=== PATIENT | female | born 2000 | race Caucasian/White ===

== ENCOUNTER → 2019-11-25 | Outpatient (CLI) | payer BC ==
[2019-11-25 17:51] LABS: BASO % 0.2 % (0.0-2.0); EOS # 0.1 (0.0-0.7); EOS % 0.9 % (0-4.0); GRAN # 3.7 (1.4-6.5); GRAN % 56.7 % (42.2-75.2); HEMATOCRIT 37.7 % (35.0-45.0); HEMOGLOBIN 13.3 g/dl (12.0-15.0); MEAN CELL VOLUME 87 fl (80.0-95.0); MEAN CORPUSCULAR HEMOGLOBIN 31 pg (26.0-32.0); MEAN CORPUSCULAR HGB CONC 35 g/dl (33.0-37.0); MEAN PLATELET VOLUME 9.7 fl (7.4-10.4); MONO # 0.7 (0.1-0.6); PLATELET COUNT 266 K/mm3 (130-400); RED BLOOD COUNT 4.34 M/mm3 (4.10-5.30); REDCELL DISTRIBUTION WIDTH-CV 11.6 % (11.5-14.5)
== END ==
LOC: COL.LAB 17:17
PROVIDERS: Student in an Organized Health Care Education/Training Program
DX: R10.9 Unspecified abdominal pain (principal); K92.1 Melena; R11.2 Nausea with vomiting, unspecified; R19.7 Diarrhea, unspecified; K52.9 Noninfective gastroenteritis and colitis, unspecified; K59.00 Constipation, unspecified; Z87.19 Personal history of other diseases of the digestive system

== ENCOUNTER 2019-12-04 07:57 | Day surgery (SDC) | payer BC ==
[~2019-12-04] VITALS: Ht 175.3 cm; Wt 98.4 kg
[2019-12-04 08:27] VITALS: BP 114/89; PULSE 56; TEMP 98.8
[2019-12-04 10:00] VITALS: BP 102/57; PULSE 76; TEMP 98.3
[2019-12-04 10:15] VITALS: BP 94/61; PULSE 70
[2019-12-04 10:30] VITALS: BP 88/59; PULSE 62
[2019-12-04 10:45] VITALS: BP 92/51; PULSE 68
[2019-12-04 11:15] VITALS: BP 103/64; PULSE 74
== END 2019-12-04 11:45 | disposition home or self-care (01) ==
LOC: SDCO 07:57
DX: R19.7 Diarrhea, unspecified (principal); K59.00 Constipation, unspecified; K92.1 Melena; Z87.19 Personal history of other diseases of the digestive system; Z90.49 Acquired absence of other specified parts of digestive tract; Z91.040 Latex allergy status
CPT/HCPCS: J2250; J2405; J3010; J7030